=== PATIENT | male | born 1995 | race Caucasian/White ===

== ENCOUNTER 2016-05-25 06:51 | Emergency (ER) | payer OTHER ==
[~2016-05-25] VITALS: Ht 190.5 cm; Wt 77.1 kg
[~2016-05-25 06:51] MED LIST: ABILIFY2 MG PO; AMOXIL500 MG PO; AUGMENTIN ES-6100 ML PO; BACTRIM DS 8001 TA1 PO; IBU800 MG PO; KEFLEX500 MG PO; MOTRIN800 MG PO; VOLTAREN 0.1%2.5 ML OPH; ZYRTEC10 MG PO
[2016-05-25] MEDS ORDERED: Motrin,Rufen400 MG PO (07:38)
[2016-07-01] MEDS ORDERED: CLARITIN10 MG PO (13:01)
[2016-07-01] MEDS ORDERED: FLONASE ALLERG9.9 ML NAS (13:01)
[2016-07-01] MEDS ORDERED: TAMIFLU 75MG CA75 MG PO (13:01)
[2016-07-01] MEDS ORDERED: ROBITUSSIN AC 110 ML PO (13:01)
== END 2016-05-25 08:58 | disposition home or self-care (01) ==
LOC: ED 06:51
DX: M79.662 Pain in left lower leg (principal)

== ENCOUNTER 2019-09-08 10:51 | Emergency (ER) | payer OTHER ==
[~2019-09-08] VITALS: Ht 193 cm; Wt 117.9 kg
[~2019-09-08 10:51] MED LIST changes: +CLARITIN10 MG PO; +FLONASE ALLERG9.9 ML NAS; +Motrin,Rufen400 MG PO; +ROBITUSSIN AC 110 ML PO; +TAMIFLU 75MG CA75 MG PO
[2019-09-08 11:23] LABS: BASO # 0.1 10*3/uL (0.0-0.1); BASO % 0.7 % (0.0-1.0); EOS # 0.2 10*3/uL (0.0-0.4); EOS % 3.1 % (1.0-4.0); HEMATOCRIT 45.2 % (42.0-52.0); LYMPH # 3.2 10*3/uL (1.3-4.4); LYMPH % 42.9 % (27.0-41.0); MEAN CORPUSCULAR HGB 28.4 pg (27.0-31.0); MEAN CORPUSCULAR HGB CONC 33.4 g/dl (33.0-37.0); MEAN PLATELET VOLUME 9.8 fl (9.6-12.3); MONO # 0.6 10*3/uL (0.1-1.0); MONO % 8.1 % (3.0-9.0); NEUT # 3.4 10*3/uL (2.3-7.9); NEUT % 45.1 % (47.0-73.0); PLATELET COUNT AUTOMATED 275 10*3/uL (130-400); RED BLOOD COUNT 5.32 10*6/uL (4.50-5.90); RED CELL DISTRI WIDTH 12.5 % (0-14.5); WHITE BLOOD COUNT 7.4 10*3/uL (4.8-10.8)
[2019-09-08 11:28] LABS: BILIRUBIN NEGATIVE (NEGATIVE); BLOOD NEGATIVE (NEGATIVE); CLARITY SL CLOUDY (CLEAR); COLOR YELLOW (YELLOW); GLUCOSE NEGATIVE (NEGATIVE); KETONE NEGATIVE (NEGATIVE); LEUKO ESTERASE NEGATIVE (NEGATIVE); NITRITE NEGATIVE (NEGATIVE); UROBILINOGEN 0.2 E.U./dl (0.2-1.0)
[2019-09-08 11:33] LABS: BACTERIA TRACE; EPITHELIAL CELLS 0-2; MUCOUS TRACE; RBC 0-2 rbc/hpf (0-2); WBC 0-2 wbc/hpf (0-5)
[2019-09-08 11:36] LABS: ALBUMIN 3.8 gm/dl (3.1-4.5); ALKALINE PHOSPHATASE 103 U/L (45-117); BUN 12 mg/dl (7-24); CHLORIDE 108 mmol/L (98-107); LIPASE 67 U/L (73-393); SGOT/AST 18 IU/L (3-35); SGPT/ALT 33 U/L (12-78); SODIUM 142 mmol/L (136-145); TOTAL PROTEIN 7.6 gm/dL (6.4-8.2)
[2019-09-08] MEDS ORDERED: IBU800 MG PO (13:06)
== END 2019-09-08 15:01 | disposition home or self-care (01) ==
LOC: ED 10:51
PROVIDERS: Nurse Practitioner Family
DX: T14.8XXA Other injury of unspecified body region, initial encounter (principal); J45.909 Unspecified asthma, uncomplicated; Z79.899 Other long term (current) drug therapy; X58.XXXA Exposure to other specified factors, initial encounter; Y93.89 Activity, other specified; Y92.89 Other specified places as the place of occurrence of the external cause; Y99.8 Other external cause status

== ENCOUNTER 2019-10-12 20:51 | Emergency (ER) | payer OTHER ==
[~2019-10-12] VITALS: Ht 193 cm
== END 2019-10-12 22:25 | disposition home or self-care (01) ==
LOC: ED 20:51
DX: H61.22 Impacted cerumen, left ear (principal); J45.909 Unspecified asthma, uncomplicated; Z79.899 Other long term (current) drug therapy

== ENCOUNTER 2019-10-15 01:28 | Emergency (ER) | payer OTHER ==
[~2019-10-15] VITALS: Ht 193 cm; Wt 90.7 kg
[2019-10-15] MEDS ORDERED: PEPCID20 MG PO (01:56)
[2019-10-15] MEDS ORDERED: PREDNISONE10 MG PO (01:56)
== END 2019-10-15 02:15 | disposition home or self-care (01) ==
LOC: ED 01:28
DX: L23.9 Allergic contact dermatitis, unspecified cause (principal); J45.909 Unspecified asthma, uncomplicated

== ENCOUNTER 2020-08-03 12:37 | Emergency (ER) | payer OTHER ==
[~2020-08-03] VITALS: Ht 190.5 cm; Wt 127.0 kg
[~2020-08-03 12:37] MED LIST changes: +PEPCID20 MG PO; +PREDNISONE10 MG PO
== END 2020-08-03 15:37 | disposition home or self-care (01) ==
LOC: ED 12:37
DX: M79.671 Pain in right foot (principal); J45.909 Unspecified asthma, uncomplicated; Z79.899 Other long term (current) drug therapy

== ENCOUNTER → 2020-09-14 | Outpatient (CLI) | payer OTHER | END | disposition home or self-care (01) | LOC: US 07-20 08:30 | PROVIDERS: ATTEND Family Medicine | DX: N28.1 Cyst of kidney, acquired (principal); N32.89 Other specified disorders of bladder; K81.9 Cholecystitis, unspecified ==

== ENCOUNTER → 2020-11-25 | Outpatient (CLI) | payer OTHER ==
[~2020-11-25] MED LIST changes: +AMOXICILLIN500 M2 PO; +KENALOG 0.025%15 GM T; +OMEPRAZOLE40 MG PO
== END | disposition home or self-care (01) ==
LOC: NM 10-08 08:00
PROVIDERS: ATTEND Family Medicine
DX: R10.84 Generalized abdominal pain (principal)

== ENCOUNTER 2021-01-06 05:22 | Emergency (ER) | payer OTHER ==
[~2021-01-06] VITALS: Ht 190.5 cm; Wt 136.1 kg
[~2021-01-06 05:22] MED LIST changes: -AMOXICILLIN500 M2 PO; -KENALOG 0.025%15 GM T; -OMEPRAZOLE40 MG PO
[2021-01-06] MEDS ORDERED: OMEPRAZOLE40 MG PO (05:38)
[2021-01-06] MEDS ORDERED: KENALOG 0.025%15 GM T (05:39)
[2021-01-06] MEDS ORDERED: AMOXICILLIN500 M2 PO (07:06)
== END 2021-01-06 07:12 | disposition home or self-care (01) ==
LOC: ED 05:22
DX: J03.90 Acute tonsillitis, unspecified (principal); Z79.899 Other long term (current) drug therapy

== ENCOUNTER 2021-02-10 00:31 | Emergency (ER) | payer OTHER ==
[~2021-02-10] VITALS: Ht 193 cm; Wt 108.9 kg
[~2021-02-10 00:31] MED LIST changes: +AMOXICILLIN500 M2 PO; +KENALOG 0.025%15 GM T; +OMEPRAZOLE40 MG PO
== END 2021-02-10 04:32 | disposition home or self-care (01) ==
LOC: ED 00:31
DX: S61.411A Laceration without foreign body of right hand, initial encounter (principal); W18.39XA Other fall on same level, initial encounter; Y93.89 Activity, other specified; Y92.89 Other specified places as the place of occurrence of the external cause; Y99.8 Other external cause status

== ENCOUNTER 2021-07-13 05:36 | Emergency (ER) | payer OTHER ==
[~2021-07-13] VITALS: Ht 187.9 cm; Wt 136.1 kg
[2021-07-13] MEDS ORDERED: DEBROX15 ML OT (06:06)
== END 2021-07-13 06:10 | disposition home or self-care (01) ==
LOC: ED 05:36
DX: H61.21 Impacted cerumen, right ear (principal)

== ENCOUNTER 2022-06-07 14:59 | Emergency (ER) | payer OTHER ==
[~2022-06-07] VITALS: Ht 190.5 cm; Wt 136.1 kg
[~2022-06-07 14:59] MED LIST changes: +DEBROX15 ML OT
[2022-06-07] MEDS ORDERED: ONDANSETRON4 MG SL (17:29)
== END 2022-06-07 17:31 | disposition home or self-care (01) ==
LOC: ED 14:59
DX: R19.7 Diarrhea, unspecified (principal); R11.0 Nausea

== ENCOUNTER 2022-06-16 00:49 | Emergency (ER) | payer OTHER ==
[~2022-06-16 00:49] MED LIST changes: +ONDANSETRON4 MG SL
[2022-06-16 01:24] LABS: BASO % 0.3 % (0.0-1.0); EOS # 0.3 10*3/uL (0.0-0.4); EOS % 2.3 % (1.0-4.0); LYMPH # 4.1 10*3/uL (1.3-4.4); LYMPH % 32.8 % (27.0-41.0); MEAN CELL VOLUME 84.9 fl (80.0-94.0); MEAN CORPUSCULAR HGB 27.8 pg (27.0-31.0); MEAN CORPUSCULAR HGB CONC 32.7 g/dl (33.0-37.0); MEAN PLATELET VOLUME 9.9 fl (9.6-12.3); MONO # 0.8 10*3/uL (0.1-1.0); MONO % 6.4 % (3.0-9.0); NEUT # 7.3 10*3/uL (2.3-7.9); NEUT % 57.9 % (47.0-73.0); PLATELET COUNT AUTOMATED 313 10*3/uL (130-400); RED BLOOD COUNT 5.18 10*6/uL (4.50-5.90); RED CELL DISTRI WIDTH 12.9 % (0-14.5); WHITE BLOOD COUNT 12.6 10*3/uL (4.8-10.8)
[2022-06-16 01:39] LABS: ALKALINE PHOSPHATASE 105 U/L (46-116); BUN 14 mg/dl (9-23); CHLORIDE 106 mmol/L (98-107); LIPASE 31 U/L (12-53); POTASSIUM 3.8 mmol/L (3.4-5.1); SGPT/ALT 27 U/L (10-49); TOTAL PROTEIN 7.5 gm/dL (6.0-8.0)
== END 2022-06-16 01:51 | disposition home or self-care (01) ==
LOC: ED 00:49
PROVIDERS: Internal Medicine
DX: R10.84 Generalized abdominal pain (principal); D72.829 Elevated white blood cell count, unspecified

== ENCOUNTER 2022-07-05 21:30 | Emergency (ER) | payer OTHER ==
[~2022-07-05] VITALS: Ht 182.8 cm; Wt 108.9 kg
[2022-07-05 22:08] LABS: ALKALINE PHOSPHATASE 105 U/L (46-116); BUN 12 mg/dl (9-23); CHLORIDE 104 mmol/L (98-107); LIPASE 27 U/L (12-53); POTASSIUM 3.9 mmol/L (3.4-5.1); SGPT/ALT 45 U/L (10-49); TOTAL PROTEIN 7.5 gm/dL (6.0-8.0)
[2022-07-05 22:10] LABS: BASO % 0.3 % (0.0-1.0); EOS # 0.2 10*3/uL (0.0-0.4); EOS % 1.5 % (1.0-4.0); LYMPH # 1.2 10*3/uL (1.3-4.4); LYMPH % 12.4 % (27.0-41.0); MEAN CELL VOLUME 85.5 fl (80.0-94.0); MEAN CORPUSCULAR HGB 27.7 pg (27.0-31.0); MEAN CORPUSCULAR HGB CONC 32.4 g/dl (33.0-37.0); MEAN PLATELET VOLUME 10.2 fl (9.6-12.3); MONO # 0.5 10*3/uL (0.1-1.0); MONO % 4.9 % (3.0-9.0); NEUT # 7.8 10*3/uL (2.3-7.9); NEUT % 80.5 % (47.0-73.0); PLATELET COUNT AUTOMATED 285 10*3/uL (130-400); RED BLOOD COUNT 5.38 10*6/uL (4.50-5.90); RED CELL DISTRI WIDTH 13.1 % (0-14.5); WHITE BLOOD COUNT 9.7 10*3/uL (4.8-10.8)
[2022-07-05 23:12] LABS: BILIRUBIN Negative (Negative); BLOOD Negative (Negative); CLARITY Clear (Clear); COLOR Yellow (Yellow); GLUCOSE Negative (Negative); KETONE Trace (Negative); LEUKO ESTERASE Negative (Negative); NITRITE Negative (Negative); PH 5.5 (4.5-8.0); SPECIFIC GRAVITY >= 1.030 (1.001-1.030)
[2022-07-05 23:34] LABS: RBC 0-2 rbc/hpf (0-2); WBC 0-2 wbc/hpf (0-5)
[2022-07-06] MEDS ORDERED: ONDANSETRON4 MG SL (01:00)
== END 2022-07-06 01:03 | disposition home or self-care (01) ==
LOC: ED 21:30
PROVIDERS: Emergency Medicine
DX: R11.2 Nausea with vomiting, unspecified (principal); R10.9 Unspecified abdominal pain; R19.7 Diarrhea, unspecified

== ENCOUNTER 2023-01-06 02:29 | Emergency (ER) | payer OTHER ==
[~2023-01-06] VITALS: Ht 193 cm; Wt 136.1 kg
[2023-01-06] MEDS ORDERED: NAPROXEN250 MG PO (06:05)
== END 2023-01-06 06:10 | disposition home or self-care (01) ==
LOC: ED 02:29
DX: S00.83XA Contusion of other part of head, initial encounter (principal); R07.81 Pleurodynia; M79.642 Pain in left hand; Y09 Assault by unspecified means; Y93.89 Activity, other specified; Y92.009 Unspecified place in unspecified non-institutional (private) residence as the place of occurrence of the external cause; Y99.8 Other external cause status

== ENCOUNTER 2023-06-07 07:27 | Emergency (ER) | payer OTHER ==
[~2023-06-07] VITALS: Ht 193 cm; Wt 136.1 kg
[~2023-06-07 07:27] MED LIST changes: +NAPROXEN250 MG PO
[2023-06-07] MEDS ORDERED: FLONASE ALLERG9.9 ML NAS (09:06)
== END 2023-06-07 09:14 | disposition home or self-care (01) ==
LOC: ED 07:27
DX: R09.89 Other specified symptoms and signs involving the circulatory and respiratory systems (principal); Z20.822 Contact with and (suspected) exposure to COVID-19; J02.9 Acute pharyngitis, unspecified; Z79.899 Other long term (current) drug therapy

== ENCOUNTER 2024-07-30 02:26 | Emergency (ER) | payer OTHER ==
[2024-07-30] MEDS ORDERED: PREDNISONE20 M1 PO (05:17)
[2024-07-30] MEDS ORDERED: CYCLOBENZAPRINE10 MG PO (05:17)
[2024-07-30] MEDS ORDERED: Cyclobenzaprine Hydrochlorid 10 MG TAB PO ONE (05:20)
== END 2024-07-30 05:35 | disposition home or self-care (01) ==
LOC: ED 02:26
DX: S39.012A Strain of muscle, fascia and tendon of lower back, initial encounter (principal); M47.816 Spondylosis without myelopathy or radiculopathy, lumbar region; Z79.899 Other long term (current) drug therapy; X58.XXXA Exposure to other specified factors, initial encounter; Y93.89 Activity, other specified; Y92.89 Other specified places as the place of occurrence of the external cause; Y99.8 Other external cause status

== ENCOUNTER → 2024-09-16 | Outpatient (CLI) | payer OTHER ==
[~2024-09-16] MED LIST changes: +CYCLOBENZAPRINE10 MG PO; +PREDNISONE20 M1 PO
[2024-09-16 11:33] LABS: BASO % 0.4 % (0.0-1.0); EOS # 0.5 10*3/uL (0.0-0.4); EOS % 4.9 % (1.0-4.0); MEAN CORPUSCULAR HGB 26.9 pg (27.0-31.0); MEAN CORPUSCULAR HGB CONC 31.7 g/dl (33.0-37.0); MEAN PLATELET VOLUME 10.1 fl (9.6-12.3); MONO # 0.8 10*3/uL (0.1-1.0); MONO % 8.2 % (3.0-9.0); NEUT # 4.5 10*3/uL (2.3-7.9); NEUT % 47.1 % (47.0-73.0); PLATELET COUNT AUTOMATED 294 10*3/uL (130-400); RED BLOOD COUNT 4.94 10*6/uL (4.50-5.90); RED CELL DISTRI WIDTH 13.2 % (0-14.5); RETICULOCYTE % 1.41 % (0.50-2.50); WHITE BLOOD COUNT 9.5 10*3/uL (4.8-10.8)
[2024-09-16 11:46] LABS: BILIRUBIN Negative (Negative); BLOOD Negative (Negative); CLARITY Clear (Clear); COLOR Yellow (Yellow); GLUCOSE Negative (Negative); KETONE Negative (Negative); LEUKO ESTERASE Negative (Negative); NITRITE Negative (Negative); PH 5.5 (4.5-8.0); UROBILINOGEN 0.2 E.U./dl (0.0-1.0)
[2024-09-16 12:02] LABS: ALKALINE PHOSPHATASE 123 U/L (46-116); BUN 12 mg/dl (9-23); CHLORIDE 108 mmol/L (98-107); CHOLESTEROL 178 mg/dL (<200); GAMMA GLUTAMYL TRANSPEPTIDASE 37 U/L (0-73); LDL CHOLESTEROL 90 mg/dL (9-159); POTASSIUM 4.3 mmol/L (3.4-5.1); SGPT/ALT 31 U/L (5-49); THYROXINE (T4) TOTAL 6.6 ug/dl (4.5-10.9); TOTAL PROTEIN 6.7 gm/dL (6.0-8.0); TRIGLYCERIDES 254 mg/dl (<150)
[2024-09-16 12:03] LABS: VITAMIN D, 25-HYDROXY 18.6 ng/mL (30-100)
[2024-09-16 12:49] LABS: EPITHELIAL CELLS 0-2; WBC 0-2 wbc/hpf (0-5)
== END | disposition home or self-care (01) ==
LOC: LAB 10:43
PROVIDERS: ATTEND Family Medicine
DX: E78.5 Hyperlipidemia, unspecified (principal); E55.9 Vitamin D deficiency, unspecified; R79.89 Other specified abnormal findings of blood chemistry; R53.83 Other fatigue